=== PATIENT | male | born 1995 | race Caucasian/White ===

== ENCOUNTER 2016-08-06 21:23 | Emergency (ER) | payer MEDICAID, OTHER, SELFPAY ==
[~2016-08-06] VITALS: Ht 170.2 cm; Wt 73.0 kg
[2016-08-06 21:24] VITALS: BP 134/84
== END 2016-08-06 23:01 | disposition home or self-care (01) ==
LOC: ED 23:00
DX: S63.633A Sprain of interphalangeal joint of left middle finger, initial encounter (principal); X58.XXXA Exposure to other specified factors, initial encounter; Y93.89 Activity, other specified; Y99.8 Other external cause status; Y92.89 Other specified places as the place of occurrence of the external cause
CPT/HCPCS: 29130